=== PATIENT | female | born 1975 | race Caucasian/White ===

== ENCOUNTER → 2018-02-24 | Outpatient (CLI) | payer OTHER ==
[~2018-02-24] MED LIST: BACTRIM DS TAB1 EACH; CIPROFLOXACIN500 M3 PO; CLARITIN10 MG PO; FLEXERIL PO; HYDROCODONE; IMITREX 25 MG T25 MG; IMITREX 50 MG T50 M1; NAPROSYN500 MG PO; NORCO 5-325 TA1 EACH PO; ONDANSETRON HCL4 M2 PO; PROTONIX 20 MG20 M1 PO; TORADOL 10 MG T10 MG; TORADOL 10 MG T10 MG PO; TRAMADOL 50 MG50 MG PO; ULTRAM 50MG TAB50 MG PO; ZOFRAN; ZOFRAN4 MG; ZOFRAN4 MG PO
== END ==
LOC: M.RAD 13:50
DX: Z12.31 Encounter for screening mammogram for malignant neoplasm of breast (principal)